=== PATIENT | male | born 1960 | race Caucasian/White ===

== ENCOUNTER 2017-01-06 11:22 | Day surgery (SDC) | payer BC ==
[2017-01-02 12:00] VITALS: BMI 24.9
[2017-01-06] MEDS ORDERED: oxyCODONE HCL 10 MG SUSTAINED ACTING TABLET ONE (12:09)
[2017-01-06] MEDS ORDERED: LIDOCAINE 1%-EPI 1:100,000 30 ML MDV IJ ONE (12:37)
[2017-01-06] MEDS ORDERED: PROPOFOL 20 ML ONE ×3 (12:56)
[2017-01-06] MEDS ORDERED: THROMBIN (BOVINE) 5,000 UNIT VIAL TP ONE ×2 (13:11→15:08)
[2017-01-06] MEDS ORDERED: BUPIVACAINE HCL/PF 2.5 MG/ML - 30 ML VIAL IJ ONE ×2 (13:11)
[2017-01-06] MEDS ORDERED: methylPREDNISolone ACET (DEPO) 40 MG/1 ML VIAL ONE (13:11)
[2017-01-06] MEDS ORDERED: MIDAZOLAM HCL 2 MG/2 ML SINGLE DOSE VIAL ONE ×2 (13:13→14:02)
[2017-01-06] MEDS ORDERED: oxyCODONE HCL 10 MG SUSTAINED ACTING TABLET PO STA (13:34)
--- NOTE | 2017-01-06 13:36 | HP ---
History & Physical Update - History History: No Change - Physical Physical: No Change - Assessment Assessment: No Change - Plan Plan: No Change (Patient presents for planned lumbar laminectomy with Dr. Rai. No change to H&P in paper chart.)
[2017-01-06] MEDS ORDERED: LIDOCAINE 1%/EPI 1:100000 (50 ML MULTI DOSE VIAL) INF ONE (14:00)
[2017-01-06] MEDS ORDERED: methylPREDNISolone ACET (DEPO) 40 MG/1 ML VIAL IM ONE (15:14)
[2017-01-06] MEDS ORDERED: ONDANSETRON 4 MG/2 ML VIAL IVPUSH PRN (15:48)
[2017-01-06] MEDS ORDERED: oxyCODONE HCL 5 MG TABLET PO PRN (15:48)
[2017-01-06] MEDS ORDERED: PROMETHAZINE HCL 25 MG/1 ML VIAL IVPUSH PRN (15:49)
[2017-01-06] MEDS ORDERED: BUPIVACAINE HCL/PF 0.25% (2.5MG/ML) 10 ML VIAL IJ ONE (15:50)
[2017-01-06] MEDS ORDERED: LACTATED RINGERS SOLUTION 1,000 ML IV SCH (16:00)
--- NOTE | 2017-01-06 16:14 | OP ---
Operative Note - Note: Operative Date: 01/06/17 Pre-Operative Diagnosis: Spinal stenosis L4-L5, L5-S1 Operation: Lumbar laminectomy L4-L5, L5-S1 Post-Operative Diagnosis: Same as Pre-op Surgeon: Jon Rai Discharge Coordinator: Shirley Teixeira Anesthesia: Spinal Estimated Blood Loss (mls): 20 Fluid Volume Replaced (mls): 1,700 Operative Report Dictated: Yes
--- NOTE | 2017-01-06 16:15 | SURG ---
Surgery Prawn Trawler Hand Note Prawn Trawler Hand: Shirley Teixeira PA-C Date of Service: 01/06/17 Diagnosis: Spinal stenosis L4-L5, L5-S1 Procedure: Lumbar laminectomy L4-L5, L5-S1 I was present for the entirety of the operative procedure. For further detail, please refer to operative report. Visit type - Case Type Case Type: Scheduled Admission - New patient This patient is new to me today: Yes Date on this admission: 01/06/17
[2017-01-06 17:16] VITALS: TEMP 98
[2017-01-06 17:32] VITALS: PULSE 74
[2017-01-06 18:03] VITALS: BP 106/71
--- NOTE | 2017-01-08 13:10 | PATH ---
Surgical Pathology Report Patient Name: KEE DUMONT Med. Rec. #: [id number] /Age/Gender: 1960 (Age: 56) / M Account: [id number] Location: [facility] Taken: 01/06/2017 Received: 01/06/2017 Reported: 01/08/2017 Physicians: Jon Rai M.D. Specimen(s) Received FACET CYST Clinical History Spinal stenosis Lumbar laminectomy L5-S1. Final Diagnosis SOFT TISSUE, LUMBAR SPINE, EXCISION: GANGLION CYST. Electronically Signed Ronaldo Sheffield M.D. Gross Description Received in formalin, labeled "facet cyst," is a 1.2 x 0.6 x 0.4 cm sanchez, irregular portion of soft tissue, possibly consistent with a cyst. The specimen is bisected and entirely submitted in one cassette. 01/07/201701/07/2017
--- NOTE | 2017-01-09 11:41 | OP ---
DATE OF OPERATION: 01/06/2017 PREOPERATIVE DIAGNOSIS: Spinal stenosis, L4-S1. POSTOPERATIVE DIAGNOSIS: Spinal stenosis, L4-S1. PROCEDURE PERFORMED: Laminectomy, L4-L5, L5-S1. SURGEON: Jon Rai MD TEACHER'S AIDE: Deisy BECKHAM ESTIMATED BLOOD LOSS: 50 mL. INTRAVENOUS FLUIDS: Per Anesthesia. ANESTHESIA: Spinal. COMPLICATIONS: None. DISPOSITION: Patient brought to the PACU in stable condition. INDICATION FOR SURGERY: The patient is a 56-year-old gentleman who has been suffering from pain from his back down his legs. X-rays and MRI were completed which noted that he had spinal stenosis from L4 to S1. He had gone through an exhaustive course of treatment for this which included medications, physical therapy as well as injections. Unfortunately, his pain continued to persist despite all this. At this point, risks, benefits, and alternatives were discussed and the patient consented to surgery. DESCRIPTION OF PROCEDURE: Patient was brought to the operating room by the anesthesia staff. After appropriate patient identification was performed, spinal anesthesia was given. He was placed prone onto the Theodore frame with all areas of bony prominences well padded at this time. Two needles were placed into his back to paul off the L3-L4 levels. An x-ray was taken to confirm this as correct. Needle was removed, and 10 mL of lidocaine with epinephrine was injected into his back at this time. His back was prepped and draped in a sterile manner. At this point in time, an incision was made from the top of L4 down to the bottom of S1. Dissection was carried down to the fascia. Fascia was exposed at this time. Retractors were then placed in. Spinal needle was placed onto the L4 lamina to paul off the L4-L5 level. An x-ray was taken to confirm this as correct. Needle was removed, and the interspinous ligament at L4-L5 and L5-S1 were removed. The microscope was brought in. At this point in time, the spinous process of L5 was removed. A bur was used to complete the removal of the bone. The laminectomy was completed. The flavum was identified and removed. A complete decompression was performed by removing portions of the inferior-superior facets such that by the end of the procedure, the L5 and S1 nerve roots appeared to be well decompressed. All bleeding was well controlled at this time. Steroid was placed over the nerve root. FloSeal was placed over that. The fascia was closed with a No. 1 Vicryl suture. The subcutaneous tissues were closed with 2-0 Vicryl suture. Skin was closed with 3-0 Monocryl suture. [place] was applied. Steri-Strips were applied. Sterile dressing was applied. Patient was placed supine on the OR bed and brought to the PACU in stable condition. Robyn TSAI/[id number] MTDD
--- NOTE | 2017-01-09 11:42 | OP ---
DATE OF OPERATION: 01/06/2017 PREOPERATIVE DIAGNOSIS: Spinal stenosis, L3-4. POSTOPERATIVE DIAGNOSIS: Spinal stenosis, L3-4. PROCEDURE PERFORMED: Laminectomy, L3-4. SURGEON: Jon Rai MD HEATSET WINDER OPERATOR: BHAVANI Valencia ESTIMATED BLOOD LOSS: 50 mL INTRAVENOUS FLUIDS: Per Anesthesia. ANESTHESIA: Spinal. COMPLICATIONS: None. DISPOSITION: Patient brought to PACU in stable condition. INDICATIONS FOR SURGERY: The patient is a 56-year-old gentleman who has been suffering from pain from his back down his leg. X-rays and MRI were completed which noted spinal stenosis at L3-4. He had gone through an exhaustive course of treatment for this including medications, physical therapy, as well as injections. Unfortunately, pain continued to persist despite all this. At this point, risks , benefits, and alternatives were discussed, and the patient consented to surgery. DESCRIPTION OF PROCEDURE: Patient was brought to the operating room by Anesthesia. After appropriate patient identification was performed, spinal anesthesia was given. He was placed prone onto the Theodore frame with all areas of bony prominences well padded at the time. Two needles were placed into his back to paul off the L3-4 level, and x-rays taken to confirm this was correct. Needle was removed, and 10 mL of lidocaine with epinephrine was injected into the back at this time. His back was prepped and draped in usual sterile manner. At this point, timeout was completed. The incision was made from the top of L3 down to the bottom of L4. Dissection was carried down to the fascia. Fascia was then split open at this time, and appropriate retractors were then placed in. A spinal needle was placed onto the L3 lamina and x-rays taken to confirm this as the L3-4 level. At this point, the microscope was brought in. Interspinous ligament at L3-4 was removed. Portions of the L3, L4 lamina were removed. Flavum was identified, it was removed. A complete decompression was performed such that by the end of the procedure both L4 nerve roots appeared to be well decompressed. All bleeding was well controlled at this time. Steroids were placed over the nerve root, Floseal was placed over that. The fascia was closed with a No. 1 Vicryl suture. The subcutaneous tissues were closed with 2-0 Vicryl suture. The skin was closed with 3-0 Monocryl suture. Dermabond was applied. Steri-Strips were applied. Sterile dressing was applied. The patient was placed supine on the OR bed and brought to the PACU in stable condition. JON RAI M.D. /[id number] MTDD
== END 2017-01-06 18:08 | disposition home or self-care (01) ==
LOC: FASU 11:22
PROVIDERS: ATTEND Orthopaedic Surgery Orthopaedic Surgery of the Spine
PROC: 01NB0ZZ Release Lumbar Nerve, Open Approach (ICD-10-PCS; principal; 2017-01-06 13:15)
DX: M48.06 Spinal stenosis, lumbar region (principal); M48.07 Spinal stenosis, lumbosacral region
CPT/HCPCS: 72100-TC; 76000-TC; 88304-TC; 94760